=== PATIENT | female | born 1930 | race Caucasian/White ===

== ENCOUNTER 2016-08-27 12:45 | Inpatient (IN) | payer OTHER, MEDICARE ==
--- NOTE | 2016-08-26 11:11 | GHP ---
[f rep st] HISTORY AND PHYSICAL DATE OF ADMISSION: 08/27/2016 HISTORY OF PRESENT ILLNESS: The patient returns to our office to discuss her rectal prolapse which she reports "is killing me." She reports that she feels like there is a big ball that she needs pushing in after bowel movements. She has had some recent bleeding. PAST MEDICAL HISTORY: Constipation, COPD, GERD, hyperlipidemia, hypoxia, irritable bowel syndrome, osteopenia, peripheral edema. PAST SURGICAL HISTORY: Cholecystectomy, hernia repair, hysterectomy. MEDICATIONS: [place], Singulair, Plavix, simvastatin, triamcinolone, VESIcare, bumetanide. ALLERGIES: Codeine, penicillin. SOCIAL HISTORY: She has 4 children. Former smoker; quit in 1978, . REVIEW OF SYSTEMS: Negative 10-point review of systems. PHYSICAL EXAM: GENERAL: Patient is a pleasant elderly female, in no apparent distress. HEAD AND NECK: Normocephalic, atraumatic. CHEST: CTA bilaterally. HEART: Regular rhythm and rate. ABDOMEN: Soft, nontender. RECTAL: Exam demonstrates a large rectal prolapse. EXTREMITIES: Bilateral lower extremity edema. IMPRESSION: Rectal prolapse. PLAN: Multiple visits have taken place where surgery has been discussed and risks have been emphasized, including nonhealing, recurrence, bleeding. Patient will most likely need a 2 to 4 night stay in the hospital. She has been cleared by Cardiology, she recently saw Dr. Perkins. The patient is to be seen again in our office today on August 26, 2016 to discuss the risks and surgical procedure further. /[id number]/MODL MTDD
[2016-09-03] MEDS ORDERED: cefOXitin SODIUM 2 GM in D5W 100 ML IV ONE (08:30)
[2016-09-03 09:26] LABS: % IMMATURE GRANULYOCYTES 0.2 % (0.0-1.1); ABSOLUTE IMMATURE GRANULOCYTES 0.01 10^3/uL (0.00-0.10); ADD DIFF? NO; ADD MORPH? NO; ADD SCAN? NO; ATYPICAL LYMPHOCYTE FLAG 20 (0-99); FRAGMENT RBC FLAG 0 (0-99); HEMATOCRIT 37.8 % (38.0-47.0); HEMOGLOBIN 12.3 g/dL (12.6-16.3); LEFT SHIFT FLG 0 (0-99); LIPEMIA HEMOLYSIS FLAG 80 (0-99); MEAN CELL HEMOGLOBIN CONCENTR. 32.5 g/dL (32.4-36.7); MEAN CELL VOLUME 89.2 fL (81.5-99.8); MEAN PLATELET VOLUME 11.2 fL (8.7-11.7); PLATELET CLUMPS FLAG 0 (0-99); PLATELET COUNT 187 10^3/uL (150-400); RED BLOOD CELL COUNT 4.24 10^6/uL (4.18-5.33); RED CELL DISTRIBUTION WIDTH 16.7 % (11.5-15.2)
[2016-09-03] MEDS ORDERED: BUPIVACAINE 0.5% 30 ML SDV ONE (09:46)
[2016-09-03] MEDS ORDERED: ceFAZolin 1 GM/5 ML SYR ONE (09:47)
[2016-09-03] MEDS ORDERED: HEPARIN 1000 UNIT/1 ML MDV ONE (09:47)
[2016-09-03 09:49] LABS: ANION GAP 11 mEq/L (8-16); CARBON DIOXIDE 30 mEq/l (22-31); CHLORIDE 100 mEq/L (97-110); CREATININE 0.7 mg/dL (0.6-1.0); GLOMERULAR FILTRATION RATE > 60; GLUCOSE 84 mg/dL (70-100); POTASSIUM 3.2 mEq/L (3.5-5.2); SODIUM 141 mEq/L (134-144)
[2016-09-03] MEDS ORDERED: LIDOCAINE 2% 5 ML SDV ONE (09:52)
[2016-09-03] MEDS ORDERED: ROCURONIUM 50 MG/5 ML VIAL ONE ×2 (09:52→11:05)
[2016-09-03] MEDS ORDERED: ONDANSETRON 4 MG/2 ML VIAL ONE (09:52)
[2016-09-03] MEDS ORDERED: DEXAMETHASONE 4 MG/ML VIAL ONE (09:52)
[2016-09-03] MEDS ORDERED: fentaNYL 100 MCG/2 ML INJ ONE ×2 (09:52→11:03)
[2016-09-03] MEDS ORDERED: PROPOFOL 200 MG/20 ML VIAL ONE (09:52)
[2016-09-03] MEDS ORDERED: MIDAZOLAM 2 MG/2 ML VIAL ONE (09:59)
[2016-09-03] MEDS ORDERED: SUGAMMADEX SODIUM 200 MG/2 ML VIAL IVP ONE (12:36)
--- NOTE | 2016-09-03 12:45 | POSTOPPROG ---
Post Op Note Date of Operation: 09/03/16 Surgeon: Fransisco Chan Chain Forming Machine Operator: Lore Adamson Anesthesiologist: Khris Mccall Anesthesia: GET(General Endotracheal) Pre-op Diagnosis: rectal prolapse Post-op Diagnosis: same, and redundant rectosigmoid colon Procedure: laparoscopic rectopexy with mesh Inf/Abcess present in the surg proc area at time of surgery?: No EBL: Minimal Complications: none Specimen(s): none
[2016-09-03] MEDS ORDERED: ONDANSETRON 4 MG/2 ML VIAL IVP PRN (12:46)
[2016-09-03] MEDS ORDERED: ACETAMINOPHEN 325 MG TAB PO PRN (12:46)
[2016-09-03] MEDS ORDERED: NS W/ 20 KCl/L 1,000 ML IV SCH (13:00)
[2016-09-03] MEDS: HYDROmorphONE/DILAUDID 1 MG/ML SYR IVP PRN (14:22)
--- NOTE | 2016-09-03 15:30 | GOP ---
[f rep st] OPERATIVE REPORT DATE OF OPERATION: SURGEON: Fransisco Chan MD PREOPERATIVE DIAGNOSIS: Rectal prolapse. POSTOPERATIVE DIAGNOSIS: Rectal prolapse. PROCEDURE PERFORMED: Laparoscopic rectopexy. FINDINGS: The patient was found to have a large, redundant colon with a patulous pelvis. DESCRIPTION OF PROCEDURE: Patient taken to the operating room, where she received satisfactory gene ral endotracheal anesthesia by Dr. Mccall. She was placed in low stirrups in the supine position, an d prepped and draped in the usual sterile fashion. A short incision was made in the left lower quadrant. A Veress needle was carefully introduced. Pn eumoperitoneum was established. A trocar was introduced. Laparoscope introduced. Good visualizati on was obtained. The right lower quadrant was obliterated with adhesions from her previous appendectomy, as well as h er cholecystectomy surgery. However, the pelvis and the left side of the abdomen were reasonably cl ear. Three other trocars were placed under direct vision in the abdomen and the patient was placed in Trendelenburg. The small bowel was retracted cephalad, and the redundant sigmoid colon was brought up and elevated up out of the pelvis. The peritoneum on either side of the rectosigmoid junction was divided with t he Harmonic Scalpel and the sacral prominence was exposed. A T shaped piece of ProGrip mesh was the n secured to the sacral prominence with a tacking device. With the rectum elevated up, 2-0 silk sut ures were used to secure the upper rectum and sigmoid colon to the presacral fascia and to the ancho red mesh. Three sutures were placed on each side securing the colon up to the sacral prominence wit hout causing any obstruction anteriorly of the colon. The leaves of the ProGrip mesh were brought u p over the sides of the rectum for a further anchoring device, and the peritoneum was then closed wi th running V-Loc 3-0 Vicryl sutures to close over the mesh in the pelvis. Hemostasis was obtained. The wound was irrigated. There were no complications. Trocars were removed under direct vision. Trocar sites were closed with 0 Vicryl for the fascia and 4-0 Monocryl subcuticular stitch for the skin, and all layers were infiltrated with 0.5% Marcaine. She tolerated the procedure quite well. She was taken to the recovery room in good condition. Ther e were no complications. /[id number]/MODL
[2016-09-03] MEDS: DOCUSATE SODIUM 100 MG CAP PO SCH (19:44)
[2016-09-03] MEDS: HYDROCODONE/APAP 5/325 TAB PO PRN (20:52)
[2016-09-04] MEDS: HYDROmorphONE/DILAUDID 1 MG/ML SYR IVP PRN (07:27)
[2016-09-04] MEDS: DOCUSATE SODIUM 100 MG CAP PO SCH ×2 (09:00→21:18)
[2016-09-04] MEDS: HYDROCODONE/APAP 5/325 TAB PO PRN (09:00)
[2016-09-04] MEDS ORDERED: ACETAMINOPHEN PO PRN (09:59)
[2016-09-04] MEDS ORDERED: HYDROCODONE PO PRN (09:59)
[2016-09-04] MEDS ORDERED: [UNRECOGNIZED DRUG - OTHER] PO PRN (09:59)
[2016-09-04] MEDS: oxyCODONE CR 15 MG TAB PO SCH ×2 (10:25→21:18)
[2016-09-04] MEDS: CLOPIDOGREL BISULFATE 75 MG TAB PO SCH (10:25)
[2016-09-04] MEDS: CYCLOSPORINE 0.05% 1 EACH BOX EACHEYE SCH ×2 (10:27→21:17)
[2016-09-04] MEDS: BUMETANIDE 1 MG TAB PO SCH (10:45)
[2016-09-04] MEDS: MONTELUKAST SODIUM 4 MG CHEWABLE TAB PO SCH (10:45)
[2016-09-04] MEDS: TRIAMCINOLONE 0.025% 15 GM CRTUBE TP SCH ×3 (10:46→21:18)
--- NOTE | 2016-09-04 12:18 | SOAPPROG ---
SOAP Progress Note Assessment/Plan: Assessment: 85yo female s/p lap rectopexy for prolapse, POD 1 tolerating soft diet, some lower ab and rectal pain, no BM yet PE in chair, awake alert Chest CTA B/L abdomen lap incisions clean and dry Plan: will likely need SNF continue current care reconciled meds saw pt with Dr Chan 09/04/16 12:12 Objective: Vital Signs Temp Pulse Resp BP Pulse Ox 36.7 C 76 16 113/66 96 09/04/16 12:11 09/04/16 12:11 09/04/16 12:11 09/04/16 12:11 09/04/16 12:11 Laboratory Results 09/03/16 09:15 09/03/16 09:15 09/03/16 09/04/16 09/05/16 05:59 05:59 05:59 Intake Total 1854 Output Total 1585 Balance 269 ICD10 Worksheet Patient Problems: Problems Problem Status Onset Rectal prolapse Acute - ICD10 Problem Qualifiers (1) Rectal prolapse
[2016-09-04] MEDS: SOLIFENACIN SUCCINATE 5 MG TAB PO SCH (21:18)
--- NOTE | 2016-09-05 08:35 | SOAPPROG ---
SOAP Progress Note Assessment/Plan: Assessment: AFEBRILE / WOUND OKAY / + BM Plan: ADVANCED A 09/05/16 08:33 Objective: Vital Signs Temp Pulse Resp BP Pulse Ox 37.1 C 76 18 121/62 H 99 09/05/16 07:07 09/05/16 07:07 09/05/16 07:07 09/05/16 07:07 09/05/16 07:07 Laboratory Results 09/03/16 09:15 09/03/16 09:15 09/04/16 09/05/16 09/06/16 05:59 05:59 05:59 Intake Total 1854 1250 Output Total 1585 1100 Balance 269 150 ICD10 Worksheet Patient Problems: Problems Problem Status Onset Rectal prolapse Acute
[2016-09-05] MEDS: TRIAMCINOLONE 0.025% 15 GM CRTUBE TP SCH ×3 (08:57→20:55)
[2016-09-05] MEDS: BUMETANIDE 1 MG TAB PO SCH (08:58)
[2016-09-05] MEDS: ENOXAPARIN 40 MG/0.4 ML SYR SC SCH (08:58)
[2016-09-05] MEDS: CLOPIDOGREL BISULFATE 75 MG TAB PO SCH (08:58)
[2016-09-05] MEDS: DOCUSATE SODIUM 100 MG CAP PO SCH ×2 (08:58→20:56)
[2016-09-05] MEDS: CYCLOSPORINE 0.05% 1 EACH BOX EACHEYE SCH ×2 (08:58→20:55)
[2016-09-05] MEDS: oxyCODONE CR 15 MG TAB PO SCH ×2 (08:59→20:56)
[2016-09-05] MEDS: MONTELUKAST SODIUM 4 MG CHEWABLE TAB PO SCH (08:59)
[2016-09-05] MEDS: POTASSIUM CL 20 MEQ TAB PO SCH (08:59)
[2016-09-05] MEDS: ATORVASTATIN CALCIUM 10 MG TAB PO SCH (09:00)
[2016-09-05] MEDS ORDERED: NON-FORMULARY NEW DRUG (Simvastatin [Simvastatin] 20 MG) PO SCH (09:00)
[2016-09-05] MEDS ORDERED: POTASSIUM CL 20 MEQ/15 ML UDCUP PO SCH (09:00)
[2016-09-05] MEDS: HYDROCODONE/APAP 10/325 TAB PO PRN (13:48)
[2016-09-05] MEDS: SOLIFENACIN SUCCINATE 5 MG TAB PO SCH (20:56)
--- NOTE | 2016-09-06 07:18 | PDIAF ---
- Diagnosis Diagnosis: s/p rectopexy (surgery for rectal prolapse) Code Status: Full Code - Medication Management Discharge Medications: Medications to Continue on Transfer Bumetanide [Bumex (*)] 1 mg PO DAILY 09/03/16 [Last Taken Unknown] Cefuroxime Axetil [Cefuroxime] 250 mg PO DAILY 09/03/16 [Last Taken Unknown] Clopidogrel Bisulfate [Plavix (*)] 75 mg PO DAILY 09/03/16 [Last Taken Unknown] Hydrocodone/Acetaminophen [Hydrocodon-Acetaminoph 7.5-325] 1 each PO Q6 PRN [Last Taken Unknown] Linaclotide [Linzess] 290 mcg PO DAILY 09/03/16 [Last Taken Unknown] Montelukast Sodium [Singulair 4 mg (*)] 4 mg PO DAILY 09/03/16 [Last Taken Unknown] Potassium Chloride Po [Potassium Chloride 20 mg/15 ml (*)] 20 meq PO DAILY 09/03 [Last Taken Unknown] Simvastatin 20 mg PO DAILY 09/03/16 [Last Taken Unknown] Solifenacin Succinate [Vesicare 5 MG (*)] 5 mg PO HS 09/03/16 [Last Taken Unknown] Triamcinolone 0.025% [Triamcinolone 0.025% cream (*)] 1 jared TP TID 09/03/16 [ Last Taken Unknown] cycloSPORINE 0.05% [Restasis Opht Drops(*)] 1 drop EACHEYE BID 09/03/16 [Last Taken Unknown] oxyCODONE CR [Oxycontin] 15 mg PO BID 09/03/16 [Last Taken Unknown] Discharge Medications: Refer to the Discharge Home Medication list for PRN reason. - Orders Services needed: Registered Nurse, Physical Therapy, Occupational Therapy Diet Recommendation: other (soft diet) Wound Care Instructions: ok to shower over wounds/incisions, no need to cover Activity/Weight Bearing Restrictions: as tolerated, no heavy lifting (greater than 40lbs) - Follow Up Care Current Providers and Referrals: Kane Escalona MD [Primary Care Provider] -
[2016-09-06] MEDS: BUMETANIDE 1 MG TAB PO SCH (08:34)
[2016-09-06] MEDS: POTASSIUM CL 20 MEQ TAB PO SCH (08:34)
[2016-09-06] MEDS: oxyCODONE CR 15 MG TAB PO SCH ×2 (08:34→20:58)
[2016-09-06] MEDS: MONTELUKAST SODIUM 4 MG CHEWABLE TAB PO SCH (08:34)
[2016-09-06] MEDS: DOCUSATE SODIUM 100 MG CAP PO SCH ×2 (08:34→20:58)
[2016-09-06] MEDS: ATORVASTATIN CALCIUM 10 MG TAB PO SCH (08:34)
[2016-09-06] MEDS: CLOPIDOGREL BISULFATE 75 MG TAB PO SCH (08:34)
[2016-09-06] MEDS: TRIAMCINOLONE 0.025% 15 GM CRTUBE TP SCH ×3 (08:35→20:59)
[2016-09-06] MEDS: ENOXAPARIN 40 MG/0.4 ML SYR SC SCH (08:36)
[2016-09-06] MEDS: CYCLOSPORINE 0.05% 1 EACH BOX EACHEYE SCH ×2 (09:02→22:06)
[2016-09-06] MEDS ORDERED: CALCIUM CARBONATE 500 MG CHEWABLE TAB PO PRN (10:24)
[2016-09-06] MEDS: HYDROCODONE/APAP 10/325 TAB PO PRN (14:42)
[2016-09-06] MEDS: SOLIFENACIN SUCCINATE 5 MG TAB PO SCH (20:58)
[2016-09-07] MEDS: POTASSIUM CL 20 MEQ TAB PO SCH (09:22)
[2016-09-07] MEDS: MONTELUKAST SODIUM 4 MG CHEWABLE TAB PO SCH (09:22)
[2016-09-07] MEDS: CLOPIDOGREL BISULFATE 75 MG TAB PO SCH (09:22)
[2016-09-07] MEDS: ATORVASTATIN CALCIUM 10 MG TAB PO SCH (09:22)
[2016-09-07] MEDS: oxyCODONE CR 15 MG TAB PO SCH ×2 (09:23→21:04)
[2016-09-07] MEDS: ENOXAPARIN 40 MG/0.4 ML SYR SC SCH (09:23)
[2016-09-07] MEDS: DOCUSATE SODIUM 100 MG CAP PO SCH ×2 (09:23→21:04)
[2016-09-07] MEDS: TRIAMCINOLONE 0.025% 15 GM CRTUBE TP SCH ×3 (09:23→21:05)
[2016-09-07] MEDS: CYCLOSPORINE 0.05% 1 EACH BOX EACHEYE SCH ×2 (09:23→21:04)
[2016-09-07] MEDS: BUMETANIDE 1 MG TAB PO SCH (09:24)
--- NOTE | 2016-09-07 10:47 | SOAPPROG ---
SOAP Progress Note Assessment/Plan: Assessment: s/p rectopexy. Was ready for discharge but patient appealed to medicare Still dizzy with transfers Likely dc to SNF tomorrow S: Dizzy when moving from bed to chair. Otherwise doing well. Tolerating diet. Had BM O: Incisions cdi Sitting in chair, appears well CTAB RRR Plan: 09/07/16 10:46 Objective: Vital Signs Temp Pulse Resp BP Pulse Ox 36.5 C 68 18 93/78 L 96 09/07/16 07:18 09/07/16 07:18 09/07/16 07:18 09/07/16 07:18 09/07/16 07:18 Laboratory Results 09/03/16 09:15 09/03/16 09:15 09/06/16 09/07/16 09/08/16 05:59 05:59 05:59 Intake Total 0 Balance 0 ICD10 Worksheet Patient Problems: Problems Problem Status Onset Rectal prolapse Acute
[2016-09-07] MEDS: SOLIFENACIN SUCCINATE 5 MG TAB PO SCH (21:04)
[2016-09-07 23:56] VITALS: TEMP 98.7
[2016-09-08 08:26] VITALS: BP 121/63; PULSE 71; RESP 14; O2SAT 93
[2016-09-08] MEDS: CYCLOSPORINE 0.05% 1 EACH BOX EACHEYE SCH (08:27)
[2016-09-08] MEDS: TRIAMCINOLONE 0.025% 15 GM CRTUBE TP SCH (08:27)
[2016-09-08] MEDS: ENOXAPARIN 40 MG/0.4 ML SYR SC SCH (08:27)
[2016-09-08] MEDS: CLOPIDOGREL BISULFATE 75 MG TAB PO SCH (08:28)
[2016-09-08] MEDS: POTASSIUM CL 20 MEQ TAB PO SCH (08:28)
[2016-09-08] MEDS: BUMETANIDE 1 MG TAB PO SCH (08:28)
[2016-09-08] MEDS: oxyCODONE CR 15 MG TAB PO SCH (08:28)
[2016-09-08] MEDS: MONTELUKAST SODIUM 4 MG CHEWABLE TAB PO SCH (08:28)
[2016-09-08] MEDS: ATORVASTATIN CALCIUM 10 MG TAB PO SCH (08:28)
[2016-09-08] MEDS: DOCUSATE SODIUM 100 MG CAP PO SCH (08:28)
[2016-09-08 09:25] LABS: POTASSIUM 3.9 mEq/L (3.5-5.2)
--- NOTE | 2016-09-08 09:57 | SOAPPROG ---
SOAP Progress Note Assessment/Plan: Assessment: s/p rectopexy. Was ready for discharge but patient appealed to medicare Still does not want to go. I feel that she is medically ready She will appeal with Medicare again Hypokalemia - resolved S: Better today but does not feel ready to dischargeTolerating diet. Had BM O: Walking hallways with physical therapy. No increased work of breathing Regular rate Plan: 09/07/16 10:46 09/08/16 09:55 Objective: Vital Signs Temp Pulse Resp BP Pulse Ox 37.1 C 71 14 121/63 H 93 09/08/16 08:23 09/08/16 08:23 09/08/16 08:23 09/08/16 08:23 09/08/16 08:23 Laboratory Results 09/03/16 09:15 09/08/16 09:03 09/07/16 09/08/16 09/09/16 05:59 05:59 05:59 Intake Total 0 Balance 0 ICD10 Worksheet Patient Problems: Problems Problem Status Onset Rectal prolapse Acute
--- NOTE | 2016-09-10 07:16 | GDS ---
[f rep st] DISCHARGE SUMMARY REASON FOR ADMISSION: Surgery for rectal prolapse. OTHER PERTINENT DIAGNOSES: Chronic obstructive pulmonary disease, gastroesophageal reflux disease, irritable bowel syndrome, peripheral edema. HOSPITAL COURSE: The patient is an 85-year-old female who [facility] to under goes surgery electively for rectal prolapse. On 09/03/2016 she underwent laparoscopic rectopexy jarad Chan. She did well during her hospital course. She was discharged to a detention faci lity with instructions to follow up in our office in 2 weeks. At the time of discharge, she was luis alberto erating a regular diet, she was ambulating with walker, and her pain was controlled on oral pain med ications. /[id number]/MODL
== END 2016-09-08 14:43 | DRG 330 ==
LOC: F3E 09-03 07:32
PROVIDERS: ADMIT Surgery; ATTEND Surgery
PROC: 0DSP4ZZ Reposition Rectum, Percutaneous Endoscopic Approach (ICD-10-PCS; principal; 2016-09-03 09:15)
PROC: 0DUP4JZ Supplement Rectum with Synthetic Substitute, Percutaneous Endoscopic Approach (ICD-10-PCS; principal; 2016-09-03 09:15)
DX: K62.3 Rectal prolapse (principal); E87.6 Hypokalemia; Q43.8 Other specified congenital malformations of intestine; K21.9 Gastro-esophageal reflux disease without esophagitis; E78.5 Hyperlipidemia, unspecified; Z87.891 Personal history of nicotine dependence; J44.9 Chronic obstructive pulmonary disease, unspecified; K58.9 Irritable bowel syndrome, unspecified; M85.80 Other specified disorders of bone density and structure, unspecified site; R60.0 Localized edema
CPT/HCPCS: 97110-GP; 97116-GP; 97162-GP; 97164-GP; 97165-GO; 97530-GP; C1781; G8978-GP-CI; G8978-GP-CJ; G8979-GP-CI; G8980-GP-CJ; G8987-GO-CL; G8988-GO-CJ; J0694; J1100; J1170; J1650; J2250; J2405; J2704; J3010

== ENCOUNTER → 2017-11-05 | Outpatient (CLI) | payer OTHER, MEDICARE | LOC: FIMAGING 08:31 | PROVIDERS: ATTEND Surgery | DX: K57.30 Diverticulosis of large intestine without perforation or abscess without bleeding (principal) ==

== ENCOUNTER → 2018-04-22 | Outpatient (CLI) | payer OTHER, MEDICARE | LOC: FIMAGING 15:27 | PROVIDERS: ATTEND Internal Medicine Pulmonary Disease | DX: J44.9 Chronic obstructive pulmonary disease, unspecified (principal); I77.810 Thoracic aortic ectasia ==